=== PATIENT | male | born 1950 | race Caucasian/White ===

== ENCOUNTER 2022-11-13 13:15 | Emergency (ER) | payer MEDICARE, OTHER, SELFPAY ==
[2022-11-13 13:18] VITALS: BP 110/76; PULSE 73; RESP 18; TEMP 36.4; O2SAT 97; BMI 31.0
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
--- NOTE | 2022-11-13 13:41 | XR_ITS ---
[facility] [id number] Patient Name: OMAR PRAJAPATI MRN: [id number] date: 1950 Sex: M Assigned Patient Location: ER Current Patient Location: ER Accession/Order Number: [id number] Exam Date: 11/13/2022 13:50 Report Date: 11/13/2022 14:12 At the request of: RAKESH RODRIGUEZ Procedure: XR elbow RT min 3V EXAMINATION: XR elbow RT min 3V, [id number] HISTORY: trauma COMPARISON: None. FINDINGS: No fracture, dislocation, or suspicious osseous lesion. No elbow joint effusion. Visualized soft tissues are within normal limits. XR/XR elbow RT min 3V IMPRESSION: No acute osseous abnormality. Electronically authenticated by: NASREEN CASTRO Date: 11/13/2022 14:12
--- NOTE | 2022-11-13 13:41 | CT_ITS ---
[address] [address] Patient Name: OMAR PRAJAPATI MRN: [id number] date: 1950 Sex: M Assigned Patient Location: ER Current Patient Location: ER Accession/Order Number: [id number] Exam Date: 11/13/2022 13:50 Report Date: 11/13/2022 14:19 At the request of: RAKESH RODRIGUEZ Procedure: CT chest wo con CT chest wo con CLINICAL HISTORY: Right-sided rib/chest wall trauma from fall COMPARISON: None Available. CT CHEST TECHNIQUE: Noncontrast axial CT images obtained from lung apices through lung bases. Coronal and sagittal reconstructions performed. Dose reduction techniques were achieved by using automated exposure control and/or adjustment of mA and/or kV according to patient size and/or use of iterative reconstruction technique. CT CHEST FINDINGS: Lower thyroid unremarkable. No axillary adenopathy. Visualized upper abdomen demonstrates incompletely included but indeterminant hypodensity of the left hepatic lobe of at least 21 mm. Not consistent with simple cyst. Normal sized adrenal glands. No acute process in the upper abdomen. Normal heart and great vessel sizes. Atherosclerotic aorta and coronary artery calcifications. No pericardial effusion. No mediastinal or retrosternal hematoma. Sternum is intact. Age indeterminate although probably chronic compression fractures at T4 and T5 levels with up to 35% height loss. No significant paraspinous edema. Left ribs are intact. Acute nondisplaced fracture right fourth lateral rib. Acute nondisplaced right anterolateral fifth, sixth, seventh ribs. No pneumothorax or pleural effusion. Minimal atelectasis and/or scarring in the bases. Mild to moderate pulmonary emphysema and areas of slight chronic air-trapping with mild bronchiectasis. No dominant mass or active consolidation. CT/CT chest wo con IMPRESSION: Several acute nondisplaced right lateral and anterolateral rib fractures as detailed. No pleural effusion or pneumothorax. Age indeterminate but probably chronic T4 and T5 compression fractures. Correlate for point tenderness. Visualized upper abdomen with indeterminant at least 21 mm left hepatic lobe hypodensity but not consistent with simple cyst. Recommend hepatic ultrasound on routine basis. Pulmonary emphysema with chronic bronchiectasis and mild scarring but no other acute process. Electronically authenticated by: ANNA MUÑOZ Date: 11/13/2022 14:19
== END 2022-11-13 15:08 | disposition home or self-care (01) ==
PROVIDERS: Emergency Provider Emergency Medicine Emergency Medical Services; PCP Family Medicine
DX: S22.41XA Multiple fractures of ribs, right side, initial encounter for closed fracture (principal); V27.01XA Electric (assisted) bicycle driver injured in collision with fixed or stationary object in nontraffic accident, initial encounter; Z79.82 Long term (current) use of aspirin; Z79.01 Long term (current) use of anticoagulants; Z79.84 Long term (current) use of oral hypoglycemic drugs; Z79.899 Other long term (current) drug therapy
CPT/HCPCS: 71250; 73080; 99284

== ENCOUNTER 2023-02-08 08:22 | Outpatient (OUT) | payer MEDICARE, OTHER, SELFPAY ==
--- NOTE | 2023-02-08 08:32 | MR_ITS ---
[address] [address] Patient Name: OMAR PRAJAPATI MRN: [id number] date: 1950 Sex: M Assigned Patient Location: MRI Current Patient Location: Accession/Order Number: [id number] Exam Date: 02/08/2023 08:45 Report Date: 02/09/2023 07:28 At the request of: CIERA STEINBERG Procedure: MR abdomen wo/w con EXAMINATION: MR abdomen wo/w con HISTORY: Liver Mass R16.0 COMPARISON: No relevant comparison available. TECHNIQUE: A comprehensive MRI examination of the abdomen was performed to optimize visualization of suspected pathology. Images were obtained with and/or without intravenous Dotarem contrast as indicated by exam type. FINDINGS: LIVER: 2.7 x 2.0 x 2.0 cm well marginated, slightly lobular lesion within anterior right hepatic lobe which is low signal on T1, high signal on T2, no appreciable internal fat, and demonstrates prominent enhancement. There appears to be a central scar, but it does not follow typical enhancement characteristics for focal nodular hyperplasia. BILIARY: No visible dilatation or calcification. PANCREAS: No lesion, fluid collection, ductal dilatation, or atrophy. SPLEEN: No enlargement or focal lesion. KIDNEYS: Benign-appearing 4.7 cm left renal cyst. No mass or obstruction. ADRENALS: No mass or enlargement. AORTA/VASCULAR: No aneurysm or dissection. RETROPERITONEUM: No mass or adenopathy. BOWEL/MESENTERY: Large diverticulum projecting from second portion of duodenum. No visible mass, obstruction, or bowel wall thickening. ABDOMINAL WALL: No mass or hernia. BONES: No bony lesion or fracture. LUNG BASES: No visible pleural disease. Lung bases not well assessed with MRI. OTHER: Negative. MR/MR abdomen wo/w con IMPRESSION: 1. Nonspecific 2.7 cm lesion within anterior right hepatic lobe which I suspect represents a hemangioma, but is not conclusive; CT abdomen with IV contrast using multiphasic liver protocol is recommended. Alternatively, ultrasound of the liver could be performed to look for hyperechogenicity of the lesion. Focal nodular hyperplasia is also considered. Hepatocellular carcinoma is not excluded but felt less likely. Electronically authenticated by: RONEL BRONSON Date: 02/09/2023 07:28
== END 2023-02-08 08:23 | disposition home or self-care (01) ==
LOC: MRI 08:22
PROVIDERS: PCP Family Medicine; Visit Provider Family Medicine
DX: R16.0 Hepatomegaly, not elsewhere classified (principal)
CPT/HCPCS: 74183; A9575